=== PATIENT | female | born 1955 | race Two or more races ===

== ENCOUNTER 2021-07-02 17:46 | Emergency (ER) | payer MEDICARE, MEDICAID, SELFPAY ==
--- NOTE | ~2021-07-02 | CT_ITS ---
EXAMINATION: CT CERVICAL SPINE WITHOUT CONTRAST CLINICAL INFORMATION: Fall. COMPARISON: None TECHNIQUE: Axial images obtained through the cervical spine. Coronal and sagittal reformatted images are performed at CT scanner This CT examination was performed using dose optimization techniques as appropriate, variously including the following: *Automated exposure control *Adjustment of mA and/or kV according to patient size (this includes techniques or standardized protocols for targeted exams where dose is matched to indication/reason for exam; i.e. extremities or head) *Use of iterative reconstruction technique DLP: 653 mGy-cm FINDINGS: There is no fracture. No subluxation. No prevertebral soft tissue swelling. No paraspinal fluid collection or hematoma. There is disc height narrowing and vertebral endplate spurs and facet joint arthrosis. There is dense ossification of the posterior longitudinal ligament from C2 through C4 narrowing the central canal. CT/CT cervical spine wo con IMPRESSION: 1. No acute abnormality. 2. Degenerative spondylosis of cervical spine. 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 This can be further assessed with MRI if clinically warranted.
--- NOTE | ~2021-07-02 | XR_ITS ---
EXAMINATION: XR HAND, RIGHT CLINICAL INFORMATION: Fall COMPARISON: None TECHNIQUE: PA, lateral, and oblique views of the right hand. FINDINGS: Degenerative changes are present in the hand at the DIP joints, most marked in the first digit. Degenerative changes also present at the base of the thumb at the first. No fractures are seen. XR/XR hand RT min 3V IMPRESSION: Degenerative changes as described above. No acute fracture.
--- NOTE | ~2021-07-02 | XR_ITS ---
EXAMINATION: XR HIP, LEFT CLINICAL INFORMATION: Fall COMPARISON: None TECHNIQUE: Two views of the left hip. Frontal view of the pelvis. FINDINGS: There is no fracture or dislocation. The hips are appropriately aligned. Narrowing of both hip joint spaces with subchondral sclerosis present. The pelvic rim is intact. The sacroiliac joints and pubic symphysis are intact. Mild sclerosis along the right sacroiliac joint. The visualized bowel gas pattern is unremarkable. XR/XR hip LT min 2V IMPRESSION: Mild degenerative changes of both hips. No fracture or malalignment.
[2021-07-02 18:58] VITALS: BP 175/98; PULSE 97; RESP 19; TEMP 36.3; O2SAT 98; BMI 37.0
--- NOTE | 2021-07-02 22:35 | ED.FALL ---
HPI - Fall General Chief Complaint: Fall Stated Complaint: left thigh pain ..slipped off the step Time Seen by Provider: 07/02/21 22:33 Source: patient and family Mode of arrival: wheelchair Limitations: no limitations History of Present Illness MD complaint: fall Onset (ago): minute(s) (prior to arrival (waiting in triage)) Fall from: standing Fall witnessed: yes, by bystander Place fall occurred: other (store) Loss of consciousness: none Prolonged down time: no Symptoms prior to fall: none Context: tripped/slipped Location of injury: neck and pelvis (L hip - felt a pop) Location of injury - extremities: right: hand Quality: aching Associated symptoms (after fall): neck pain and other (R hand and L hip pain) Related Data Previous Rx's Medication Instructions Recorded lidocaine 5 % topical 1 patch TOPICAL DAILY #32 ea 07/02/21 patch-elastic bandage, combination package (Dermalid) oxycodone 5 mg tablet 5 mg PO Q8H PRN #12 tab 07/02/21 Allergies Allergy/AdvReac Type Severity Reaction Status Date / Time Penicillins Allergy Hives Verified 07/02/21 18:58 Review of Systems Review of Systems: Constitutional : No Fever, No Chills ENT/Mouth : No Ear Pain, No Hoarseness, No sore throat Eyes: No Eye Pain, No Swelling, No Redness, No Foreign Body Cardiovascular : No Chest Pain, No SOB Respiratory : No Cough, No Dyspnea Gastrointestinal : No Nausea, No Vomiting, No Diarrhea, No abdominal Pain Genitourinary : No Dysuria, No Hematuria Musculoskeletal : positive joint pain, No Myalgias, No Joint Swelling, pos neck pain Skin : No Skin lacerations, No rash Neuro : No Weakness, No Numbness, No Loss of Consciousness, No Dizziness, No Headache Psych : No Anxiety/Panic, No Depression Heme/Lymph: no easy bruising, no Lymphadenopathy Endocrine : No Polyuria, No Polydipsia All other systems reviewed and are negative [facility] Past Medical History Attestation statement: The following information was validated with the patient. Medical History Diabetes HTN (hypertension) Sickle cell anemia Social History Social History (Updated 07/02/21 @ 22:46 by Ruma Garnica DO) Patient Tobacco Use Status: Never used Tobacco Advance Directives: No Physical Exam Vital Signs: Vital Signs: Last Vital Signs Temp 97.4 F 07/02/21 18:58 Pulse 97 07/02/21 18:58 Resp 19 07/02/21 18:58 BP 175/98 H 07/02/21 18:58 Pulse Ox 98 07/02/21 18:58 Body Mass Index 37.0 Appearance: Alert. Oriented X3. No acute distress. Eyes: Pupils equal, round and reactive to light. ENT: Pharynx normal. Neck: ttp R lateral aspect, no step offs felt CVS: Normal heart rate and rhythm. Pulses normal. Respiratory: No respiratory distress. Breath sounds normal. Abdomen: Soft and nontender. Back: nontender Skin: Skin warm and dry. Normal skin color. Normal skin turgor. Extremities: No lower extremity edema. R hand mild swelling on dorsum 2nd/3rd metacarpal - NV intact, L hip reports pain to palpation she can bear weight - distal NV intact Neuro: Oriented X 3. No motor deficit. No sensory deficit. Course Course Course Narrative: aware of CT Scan findings no acute upper neuro findings - can follow up with PCP doubt occult fracture she can bear weight I have seen her ambulate MDM - Fall MDM Narrative Medical decision making narrative: 66 yo female with DM, HTN, sickle cell anemia, no AC therapy here with mechanical fall after slipping at store did not strike head or have LOC reports falling forward and feeling a pull in her R neck, R hand pain from fall and L hip pain with a pop feeling - she can bear weight and ambulated to the bathroom here. At this time will obtain xrays of R hip, R hand, CT cervical spine. PO pain control. Dispo per results and findings. Discharge Plan Discharge Clinical Impression: Acute whiplash injury Qualifiers: Encounter type: initial encounter Qualified Code(s): S13.4XXA - Sprain of ligaments of cervical spine, initial encounter Contusion of hip Qualifiers: Encounter type: initial encounter Laterality: left Qualified Code(s): S70.02XA - Contusion of left hip, initial encounter Sprain of hand, right Qualifiers: Encounter type: initial encounter Qualified Code(s): S63.91XA - Sprain of unspecified part of right wrist and hand, initial encounter Patient Disposition: Home, Self-Care Instructions: Sprain (ED), Cervical Sprain (ED), Hip Contusion (ED) Additional Instructions: return to ED for any worsening symptoms or concerns Prescriptions: New Dermalid 5 % combo pack 1 patch topical DAILY Qty: 32 RF: 0 oxycodone 5 mg tablet 5 mg PO Q8H PRN (Reason: pain) Qty: 12 RF: 0 Referrals: Physician,None [Primary Care Provider] - 2 days (if not better) Print Language: Divehi
[2021-07-02] MEDS: oxyCODONE HCl Immed Release 5 MG TABLET 10 MG PO (23:24)
[2021-07-02 23:38] VITALS: BP 152/74; PULSE 72; RESP 18; TEMP 36.6; O2SAT 97
--- NOTE | 2021-07-02 23:39 | PC.NURSE ---
Pt alert and oriented x4, calm and cooperative. Pt states left hip pain, meds given. Pt states is ready for dc. No IV in place. Pt wheeled to private care with family.
== END 2021-07-02 23:40 | disposition home or self-care (01) ==
PROVIDERS: Emergency Provider Emergency Medicine
DX: S13.4XXA Sprain of ligaments of cervical spine, initial encounter (principal); S70.02XA Contusion of left hip, initial encounter; S63.91XA Sprain of unspecified part of right wrist and hand, initial encounter; M54.2 Cervicalgia; W10.9XXA Fall (on) (from) unspecified stairs and steps, initial encounter; Y93.9 Activity, unspecified; Y92.9 Unspecified place or not applicable; Y99.9 Unspecified external cause status; Z79.899 Other long term (current) drug therapy
CPT/HCPCS: 72125; 73130; 73502; 99284

== ENCOUNTER 2021-07-24 04:52 | Emergency (ER) | payer MEDICARE, MEDICAID, SELFPAY ==
[2021-07-24 05:03] VITALS: BP 150/80; BP 156/90; PULSE 121; PULSE 78; RESP 18; TEMP 36.9; O2SAT 97; O2SAT 98; BMI 38.6
[2021-07-24 05:09] LABS: Glucose, Whole Blood 117 mg/dL (60-115)
--- NOTE | 2021-07-24 05:28 | ECG_ITS ---
Test Reason : weakness Blood Pressure : / mmHG Vent. Rate : 094 BPM Atrial Rate : 094 BPM P-R Int : 158 ms QRS Dur : 072 ms QT Int : 358 ms P-R-T Axes : 041 -48 009 degrees QTc Int : 447 ms Normal sinus rhythm Left anterior fascicular block RSR' or QR pattern in V1 suggests right ventricular conduction delay Poor R wave progression Abnormal ECG No previous ECGs available Referred By: Tere Olson Electronically Signed By:VICTORIANO MANZO MD
[2021-07-24 06:31] LABS: Appearance Urine CLEAR; Color Urine STRAW; Glucose Urine UA NEG (NEG); Leukocyte Esterase Urine 1+ (NEG); Nitrite Urine NEG (NEG); PH 6.5 (5.0-8.0); Specific Gravity - Urine <= 1.005 (1.005-1.025); UACC Culture Trigger YES; Urine Blood NEG (NEG); Urine Ketones NEG (NEG); Urine Protein NEG (NEG-TRACE)
[2021-07-24 06:35] LABS: MANUAL DIFF FLAG NO
[2021-07-24 06:40] LABS: RBC Urine 0 /HPF (0); Squamous Epithelial Cell Urine 1+ /LPF; WBC Urine 0-2 /HPF (0-4)
[2021-07-24 06:49] LABS: Basophils Absolute Auto 0.1 X10*3/uL (0.0-0.2); Basophils Percent Auto 0.9 % (0-2); Eosinophils Absolute Auto 0.1 X10*3/uL (0.0-0.4); Eosinophils Percent Auto 1.6 % (0-4); Hematocrit 38.5 % (37.0-47.0); Hemoglobin 12.6 g/dl (12.0-16.0); Imm Gran Abs Auto 0.02 X10*3/uL (0.00-0.03); Imm Gran Pct Auto 0.3 % (0.0-0.4); Lymphocytes Absolute Auto 2.4 X10*3/uL (1.2-4.9); Lymphocytes Percent Auto 35.5 % (20-40); Mean Corpuscular HGB Conc 32.7 g/dl (31.0-35.0); Mean Corpuscular Hemoglobin 27.6 pg (27.0-33.0); Mean Corpuscular Volume 84.2 fL (80.0-98.0); Mean Platelet Volume 9.9 fL (9.4-12.3); Monocytes Absolute Auto 0.7 X10*3/uL (0.1-1.2); Monocytes Percent Auto 10.1 % (2-11); Neutrophils Absolute Auto 3.5 x10*3/uL (2.0-8.3); Neutrophils Percent Auto 51.6 % (45-73); Platelet Count 270 X10*3/uL (160-400); Red Blood Count 4.57 X10*6/uL (4.20-5.50); Red Cell Distribution Width 12.6 % (11.0-16.0); White Blood Count 6.7 X10*3/uL (4.8-10.8)
[2021-07-24 06:51] LABS: Alanine Aminotransferase 20 U/L (0-31); Albumin Level 4.2 g/dL (3.5-5.0); Alkaline Phosphatase 90 U/L (39-117); Anion Gap 13 (12-20); Aspartate Amino Transferase 22 U/L (5-31); Bilirubin Total 0.7 mg/dL (0.0-1.0); Blood Urea Nitrogen 16 mg/dL (9-16); Carbon Dioxide 28 mmol/L (22-29); Chloride 101 mmol/L (96-108); Creatinine Clr Calc Pharmacy 64.9; Estimated Glomerular Filt Rate 53; Glucose Random 123 mg/dL (60-115); Potassium 3.6 mmol/L (3.3-5.1); Sodium 138 mmol/L (135-145); Total Protein 7.9 g/dL (6.5-8.0)
--- NOTE | 2021-07-24 07:23 | ED.GENADULT ---
HPI - General Adult General Chief complaint: General Medical Stated complaint: weakness Time Seen by Provider: 07/24/21 05:27 Source: patient and educational interpreter Mode of arrival: ambulatory Limitations: no limitations History of Present Illness HPI narrative: 66-year-old female comes in by ambulance for evaluation of elevated blood sugar. Patient is type 2 diabetes controlled with insulin patient takes 60 units of Lantus in the a.m. and 12 units of Humalog before breakfast, patient checked her blood sugar home found to be very high patient stated that she drinks 5 bottles of water at home before arrival, on arrival blood sugar is 117. Patient declined any fever chills, no urinary symptoms. Patient also complained of right-sided chest discomfort with numbness in the right upper extremities but no weakness anywhere else no abnormal speech was reported from the patient. Related Data Previous Rx's Medication Instructions Recorded lidocaine 5 % topical 1 patch TOPICAL DAILY #32 ea 07/02/21 patch-elastic bandage, combination package (Dermalid) oxycodone 5 mg tablet 5 mg PO Q8H PRN #12 tab 07/02/21 oxycodone-acetaminophen 2.5 mg-325 1 tab PO Q8H PRN #1 tab 07/24/21 mg tablet (Percocet) Allergies Allergy/AdvReac Type Severity Reaction Status Date / Time Penicillins Allergy Hives Verified 07/02/21 18:58 Review of Systems Review of Systems: All other systems are reviewed and are negative Constitutional: Reports as per HPI and Reports no additional constitutional complaints Eyes: Reports as per HPI and Reports no additional eye complaints Reports system reviewed and no additional complaints, except as documented Cardiovascular: Reports as per HPI and Reports no additional cardiovascular complaints Respiratory: Reports as per HPI and Reports no additional respiratory complaints Gastrointestinal: Reports as per HPI and Reports no additional gastrointestinal complaints Genitourinary: Reports no additional female genitourinary complaints Musculoskeletal: Reports no additional musculoskeletal complaints Skin/Breast: Reports system reviewed and no additional complaints, except as docu Psychiatric: Reports no additional psychiatric complaints Endocrine: Reports no additional endocrine complaints Hematologic/Lymphatic: Reports no additional hematologic/lymphatic complaints Allergic/Immunologic: Reports no additional allergic/immunologic complaints Reports system reviewed and no additional complaints, except as documented and Reports Abnormal speech present [facility] Past Medical History Medical History Diabetes HTN (hypertension) Sickle cell anemia Social History Social History Patient Tobacco Use Status: Never used Tobacco Advance Directives: No Advance Directives Information Provided: Yes Physical Exam Vital Signs: Vital Signs: Last Vital Signs Temp 98.5 F 07/24/21 07:53 Pulse 89 07/24/21 07:53 Resp 18 07/24/21 07:53 BP 118/67 07/24/21 07:53 Pulse Ox 99 07/24/21 07:53 Body Mass Index 38.6 Vital signs have been reviewed as appeared to be correct. Blood pressure normal. Heart rate elevated. Respiration rate normal. Temperature normal. Oxygen saturation normal. Appearance: Alert. Oriented X3. No acute distress. Head: Normal external exam. Normocephalic. Atraumatic. No Cortes signs noted. No raccoon eyes noted Eyes: PERRLA. EOMI. Conjunctiva and sclera normal. Eyelids normal. ENT: TM's Normal. Pharynx normal. Uvula midline. Moist mucous membranes. No trismus noted. No drooling noted. No muffled voice noted. Neck: Normal inspection. Neck supple. FROM. No adenopathy. Thyroid Normal. No meningeal signs. No neck mass noted. CVS: Normal heart rate and rhythm. Heart sound normal. No murmurs noted. Pulses normal throughout. Respiratory: No respiratory distress. Painless inspiration. Breath sounds normal. No wheezes/rales/rhonchi noted. Chest nontender. No accessory muscle usage noted or decreased air movement noted. Abdomen: Soft and nontender. Bowel sounds normal in all 4 quadrants. No distention noted. No organomegaly noted. No visible injury noted. Back: No CVA tenderness. Full range of motion noted. Skin: Skin warm and dry. Normal skin color. Normal skin turgor. No rashes/lesions/lacerations noted. Extremities: No lower extremity edema. Extremities exhibit normal range of motion. Extremities nontender. Neuro: Oriented X 3. Cranial nerve exam: II-XII are grossly intact No motor deficit. No sensory deficit. Reflexes normal. Course Course Course Narrative: Assessment and plan. 66-year-old female came in for elevated blood sugar, on arrival to the ED blood sugar is in normal range, patient also complained of right-sided chest pain numbness in the right upper extremities, patient had a normal neuro exam, NIH score is 0, cardiac workup is unremarkable. Medical Decision Making Medical Records Medical records reviewed: Yes I reviewed the patient's medical records. Lab Data Lab results reviewed: Yes I reviewed the patient's lab results. Result diagrams: 07/24/21 06:30 07/24/21 06:30 Labs: Lab Results 07/24/21 07/24/21 07/24/21 Range/Units 05:03 06:23 06:30 WBC 6.7 (4.8-10.8) X10*3/uL RBC 4.57 (4.20-5.50) X10*6/uL Hgb 12.6 (12.0-16.0) g/dl Hct 38.5 (37.0-47.0) % MCV 84.2 (80.0-98.0) fL MCH 27.6 (27.0-33.0) pg MCHC 32.7 (31.0-35.0) g/dl RDW 12.6 (11.0-16.0) % Plt Count 270 (160-400) X10*3/uL MPV 9.9 (9.4-12.3) fL Immature Gran % (Auto) 0.3 (0.0-0.4) % Neut % (Auto) 51.6 (45-73) % Lymph % (Auto) 35.5 (20-40) % [place] % (Auto) 10.1 (2-11) % Eos % (Auto) 1.6 (0-4) % Baso % (Auto) 0.9 (0-2) % Lymph # (Auto) 2.4 (1.2-4.9) X10*3/uL [place] # (Auto) 0.7 (0.1-1.2) X10*3/uL Eos # (Auto) 0.1 (0.0-0.4) X10*3/uL Baso # (Auto) 0.1 (0.0-0.2) X10*3/uL Abs Immat Gran (auto) 0.02 (0.00-0.03) X10*3/uL Absolute Neuts (auto) 3.5 (2.0-8.3) x10*3/uL Absolute Nucleated RBC 0.000 (0.0-0.012) X10*3/uL Nucleated RBC % (auto) 0.0 (0.0-0.2) /100WBC Sodium (135-145) mmol/L Potassium (3.3-5.1) mmol/L Chloride (96-108) mmol/L Carbon Dioxide (22-29) mmol/L Anion Gap (12-20) BUN (9-16) mg/dL Creatinine (0.5-1.4) mg/dL Estim Creat Clear Calc Estimated GFR POC Glucose 117 H (60-115) mg/dL Random Glucose (60-115) mg/dL Calcium (8.4-10.2) mg/dL Total Bilirubin (0.0-1.0) mg/dL AST (5-31) U/L ALT (0-31) U/L Alkaline Phosphatase (39-117) U/L Troponin I High Sens (<3.5-17.0) ng/L Total Protein (6.5-8.0) g/dL Albumin (3.5-5.0) g/dL Urine Color STRAW Urine Appearance CLEAR Urine pH 6.5 (5.0-8.0) Ur Specific [place] <= 1.005 (1.005-1.025) Urine Protein NEG (NEG-TRACE) MG/DL Urine Glucose (UA) NEG (NEG) MG/DL Urine Ketones NEG (NEG) MG/DL Urine Blood NEG (NEG) Urine Nitrite NEG (NEG) Ur Leukocyte Esterase 1+ H (NEG) Urine RBC 0 (0) /HPF Urine WBC 0-2 (0-4) /HPF Ur Squamous Epith Cells 1+ /LPF Urine Bacteria NONE /LPF 07/24/21 07/24/21 Range/Units 06:30 07:57 WBC (4.8-10.8) X10*3/uL RBC (4.20-5.50) X10*6/uL Hgb (12.0-16.0) g/dl Hct (37.0-47.0) % MCV (80.0-98.0) fL MCH (27.0-33.0) pg MCHC (31.0-35.0) g/dl RDW (11.0-16.0) % Plt Count (160-400) X10*3/uL MPV (9.4-12.3) fL Immature Gran % (Auto) (0.0-0.4) % Neut % (Auto) (45-73) % Lymph % (Auto) (20-40) % [place] % (Auto) (2-11) % Eos % (Auto) (0-4) % Baso % (Auto) (0-2) % Lymph # (Auto) (1.2-4.9) X10*3/uL [place] # (Auto) (0.1-1.2) X10*3/uL Eos # (Auto) (0.0-0.4) X10*3/uL Baso # (Auto) (0.0-0.2) X10*3/uL Abs Immat Gran (auto) (0.00-0.03) X10*3/uL Absolute Neuts (auto) (2.0-8.3) x10*3/uL Absolute Nucleated RBC (0.0-0.012) X10*3/uL Nucleated RBC % (auto) (0.0-0.2) /100WBC Sodium 138 (135-145) mmol/L Potassium 3.6 (3.3-5.1) mmol/L Chloride 101 (96-108) mmol/L Carbon Dioxide 28 (22-29) mmol/L Anion Gap 13 (12-20) BUN 16 (9-16) mg/dL Creatinine 1.04 (0.5-1.4) mg/dL Estim Creat Clear Calc 64.9 Estimated GFR 53 POC Glucose (60-115) mg/dL Random Glucose 123 H (60-115) mg/dL Calcium 10.0 (8.4-10.2) mg/dL Total Bilirubin 0.7 (0.0-1.0) mg/dL AST 22 (5-31) U/L ALT 20 (0-31) U/L Alkaline Phosphatase 90 (39-117) U/L Troponin I High Sens 6.7 (<3.5-17.0) ng/L Total Protein 7.9 (6.5-8.0) g/dL Albumin 4.2 (3.5-5.0) g/dL Urine Color Urine Appearance Urine pH (5.0-8.0) Ur Specific [place] (1.005-1.025) Urine Protein (NEG-TRACE) MG/DL Urine Glucose (UA) (NEG) MG/DL Urine Ketones (NEG) MG/DL Urine Blood (NEG) Urine Nitrite (NEG) Ur Leukocyte Esterase (NEG) Urine RBC (0) /HPF Urine WBC (0-4) /HPF Ur Squamous Epith Cells /LPF Urine Bacteria /LPF ECG Data Attestation: I personally reviewed and interpreted this ECG as follows: Interpretation: Normal sinus rhythm at 94 beats per minute, left axis deviation, normal intervals, nonspecific ST-T changes. Discharge Plan Discharge Clinical Impression: Acute hyperglycemia Patient Disposition: Home, Self-Care Instructions: Diabetic Hyperglycemia (ED) Prescriptions: New oxycodone-acetaminophen [Percocet] 2.5-325 mg tablet 1 tab PO Q8H PRN (Reason: pain) Qty: 1 RF: 0 No Action Dermalid 5 % combo pack 1 patch topical DAILY Qty: 32 RF: 0 oxycodone 5 mg tablet 5 mg PO Q8H PRN (Reason: pain) Qty: 12 RF: 0 Referrals: Physician,Unknown J [Primary Care Provider] - 2 days
[2021-07-24 07:53] VITALS: BP 118/67; PULSE 89; RESP 18; TEMP 36.9; O2SAT 99
[2021-07-24 08:24] LABS: Troponin-I High Sensitivity 6.7 ng/L (<3.5-17.0)
== END 2021-07-24 10:17 | disposition home or self-care (01) ==
PROVIDERS: Student in an Organized Health Care Education/Training Program; Emergency Provider Emergency Medicine
DX: E11.65 Type 2 diabetes mellitus with hyperglycemia (principal); R53.1 Weakness; I10 Essential (primary) hypertension; Z79.4 Long term (current) use of insulin
CPT/HCPCS: 36415; 80053; 81001; 82947; 84484; 85025; 87086; 93005; 99283; 99284

== ENCOUNTER 2024-04-30 12:40 | Outpatient (AMB) | payer OTHER, SELFPAY ==
--- NOTE | 2024-04-30 12:57 | MHC.OFFVIS ---
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 Per referring provider, EMG done 10/21/23 showing moderate to severe bilateral carpal tunnel syndrome. However, patient reports she had a fall on 03/15/23 and has been having trouble ambulating due to left ankle pain. Patient wishes to have her left ankle evaluated today and not her hands. She thinks she has a fracture. Denies numbness or tingling on her left ankle. 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 The patient states that, on 03/15/2023, she fell, and has been experiencing pain in her left benson and ankle since this time. Patient reports that there is a focal area on her anterior left lower leg that causes her pain, and she feels is filled with fluid. Patient reports that this pain has made it more difficult for her to ambulate. Patient denies numbness or tingling in the left lower extremity. Of note, the patient does have a history significant for CHF with a reduced ejection fraction. No other acute complaints or concerns at this time. [facility] Medical History Diabetes HTN (hypertension) Sickle cell anemia Social History Patient Tobacco Use Status: Never used Tobacco Review of Systems Const All systems reviewed & are unremarkable except as noted in HPI and below Physical Exam Vital Signs: BMI result Body Mass Index 37.9 Extrem Other: On inspection, there is noted to be some mild edema of the left ankle as compared to the right There are also noted to be some chronic skin changes consistent with venous stasis No erythema, ecchymosis noted No lacerations, abrasions, open areas No evidence of infection Patient reports moderate tenderness to palpation about the anterior left distal tibia There is noted to be a focal area of fluctuance on the left anterior distal tibia, that is the area of focal tenderness No overlying erythema Patient also reports mild tenderness to palpation diffusely about the left ankle Patient is able to dorsiflex and plantar flex the left foot and ankle without difficulty Patient is able to flex and extend the digits of the left foot without difficulty Distal sensation intact Capillary refill brisk Results Reviewed Results Reviewed: X-rays obtained in the office today and independently reviewed by me, Félix Encarnacion PA-C, demonstrate diffuse soft tissue calcifications throughout the distal left lower extremity and ankle. No fracture or acute bony abnormality noted. Assessment & Plan Assessment & Plan (1) Pain in left benson: Code(s): M79.662 - Pain in left lower leg Category: Medical (2) Left ankle pain: Code(s): M25.572 - Pain in left ankle and joints of left foot Category: Medical Plan 1. Left benson and ankle pain status post fall Date of injury 03/15/2023 At this time, MRI of the left ankle is ordered to assess the focal area of fluctuance and tenderness over the anterior distal left lower extremity, as well as the pain in the left ankle Patient is amenable to this plan In the meantime, patient is educated on conservative pain management measures, including but not limited to rest, ice, elevation, and [id number] pain medication as needed Patient is offered physical therapy, but politely declines Patient will follow-up after MRI for results review, sooner any acute concerns Orders: Orders XR ankle LT min 3V 04/30/24 M25.572 - Pain in left ankle and joints of left foot MR lower leg LT wo con 04/30/24 M79.661 - Pain in right lower leg Coding Level of Care Code New Pt Level 3 (73619) Diagnoses Pain in left benson M79.662 Left ankle pain M25.572
[2024-04-30 13:09] VITALS: BMI 37.9
== END 2024-04-30 14:42 | disposition home or self-care (01) ==
DX: M79.662 Pain in left lower leg (principal); M25.572 Pain in left ankle and joints of left foot
CPT/HCPCS: 99203

== ENCOUNTER 2024-04-30 13:14 | Outpatient (REF) | payer OTHER, SELFPAY ==
--- NOTE | ~2024-04-30 | XR_ITS ---
EXAMINATION: XR ANKLE, LEFT CLINICAL INFORMATION: Left ankle pain. COMPARISON: None available. TECHNIQUE: AP, lateral, and mortise views of the left ankle. FINDINGS: No acute fracture or dislocation. The ankle mortise is maintained. Tiny dorsal talonavicular and cuneiform navicular marginal osteophytes. Small plantar and dorsal marginal spurs. Circumferential soft tissue swelling with dystrophic soft tissue calcification. XR/XR ankle LT min 3V IMPRESSION: 1. Circumferential soft tissue swelling with dystrophic soft tissue calcification. 2. 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 3. Small plantar and dorsal marginal spurs. Electronically signed by: Tavo Lyons MD 05/06/2024 02:15 PM EDT
== END 2024-04-30 13:15 | disposition home or self-care (01) ==
LOC: HO.HOSX 13:14
PROVIDERS: PCP Physician Assistant
DX: M25.572 Pain in left ankle and joints of left foot (principal); M79.662 Pain in left lower leg
CPT/HCPCS: 73610; 99202